=== PATIENT | female | born 1955 | race Caucasian/White ===

== ENCOUNTER 2017-11-24 07:22 | Day surgery (SDC) | payer OTHER ==
[2017-11-24] MEDS ORDERED: PROPOFOL 500 MG/50 ML EMU IV ONE (07:32)
[2017-11-24 09:38] VITALS: BP 149/81; PULSE 61; RESP 20; TEMP 97.7; O2SAT 100
== END 2017-11-24 09:50 | disposition home or self-care (01) | DRG 951 ==
LOC: SURG 07:22
PROVIDERS: ATTEND Surgery
DX: Z12.11 Encounter for screening for malignant neoplasm of colon (principal); K57.32 Diverticulitis of large intestine without perforation or abscess without bleeding; Z80.0 Family history of malignant neoplasm of digestive organs; Z86.010 Personal history of colon polyps; D12.5 Benign neoplasm of sigmoid colon; K63.5 Polyp of colon
CPT/HCPCS: 99001; J2704